=== PATIENT | female | born 1980 | race Caucasian/White ===

== ENCOUNTER → 2016-06-03 | Outpatient (CLI) | payer BC ==
[~2016-06-03] MED LIST: MULT-955 PO
--- NOTE | 2016-06-03 08:49 | Diagnostic Imaging Report ---
INDICATION: Left ankle fracture. AP and lateral views of the left ankle are obtained. There is no previous study for comparison. FINDINGS: Lateral fixation plate and medial malleolar fixation screws are in place. There is mild displacement of posterior malleolar fracture fragment. There are also small fracture fragments or ossification along the anterior and posterior aspect of the ankle joint. There is no evidence of acute abnormality or orthopedic hardware complication. IMPRESSION: Open reduction and internal fixation of nonacute distal tibial and fibular fractures. There may be small ossific loose bodies or dystrophic calcification around the ankle joint. Dictated by: Dictated on workstation # [id number]
== END ==
LOC: RAD 06:46
PROVIDERS: ATTEND Orthopaedic Surgery
DX: Z98.890 Other specified postprocedural states (principal); S82.892D Other fracture of left lower leg, subsequent encounter for closed fracture with routine healing; X58.XXXD Exposure to other specified factors, subsequent encounter
CPT/HCPCS: 73600

== ENCOUNTER 2016-06-26 08:00 | Outpatient (RCR) | payer BC | END 2016-07-04 12:00 | disposition home or self-care (01) | LOC: PT 08:00 | PROVIDERS: ATTEND Orthopaedic Surgery | DX: S82.892D Other fracture of left lower leg, subsequent encounter for closed fracture with routine healing (principal); W10.9XXD Fall (on) (from) unspecified stairs and steps, subsequent encounter; Z98.890 Other specified postprocedural states ==